=== PATIENT | female | born 1960 | race African-American/Black ===

== ENCOUNTER → 2016-12-04 | Outpatient (CLI) | payer OTHER ==
[~2016-12-04] VITALS: Ht 162.6 cm; Wt 84.0 kg
[~2016-12-04] MED LIST: ALLEGRA180 MG PO; Ascorbic Acid,Ester- PO; Bactrim,Septra DS 80 PO; CELEBREX200 MG PO; Copaxone SC; DITROPAN5 MG PO; DULCOLAX5 MG PO; Ditropan PO; FEOSOL325 MG PO; FLONASE16 G1 BOTH NARES; Flonase BOTH NARES; GILENYA0.5 MG PO; LOVENOX40 MG/0.4 SC; Lioresal PO; NUVIGIL150 MG PO; NUVIGIL250 MG PO; OXYCODONE HCL5 M1 PO; OxyCODONE PO; OxyCONTIN PO; Provigil PO; SENOKOT S,PE1 TABLET PO; SUPER B COMP1 TABLET PO; THERAGRAN1 TABLET PO; TIZANIDINE HCL4 MG PO; TYLENOL EXTRA500 MG PO; Tums PO; Tylenol Regular Stre PO; VITAMIN D1000 INTUN PO; VITAMIN D2000 INTUN PO; Vitamin B Complex PO; ZANAFLEX4 MG PO; ZOLOFT100 MG PO; Zoloft PO; predniSONE PO
== END | disposition home or self-care (01) ==
LOC: AMB 09:29
PROC: 0DJD8ZZ Inspection of Lower Intestinal Tract, Via Natural or Artificial Opening Endoscopic (ICD-10-PCS; principal; 2016-12-04)
DX: Z12.11 Encounter for screening for malignant neoplasm of colon (principal); K64.8 Other hemorrhoids; E78.5 Hyperlipidemia, unspecified; N31.9 Neuromuscular dysfunction of bladder, unspecified
CPT/HCPCS: J2250; J3010

== ENCOUNTER 2017-09-23 16:20 | Observation (INO) | payer OTHER ==
[~2017-09-23] VITALS: Ht 162.6 cm; Wt 81.8 kg
[~2017-09-23 16:20] MED LIST changes: +ALLEGRA ALLERG180 MG PO; -SUPER B COMP1 TABLET PO; +SUPER B COMPLE1 EAC2 PO; -VITAMIN D2000 INTUN PO; +VITAMIN D2000 UNIT PO
[2017-09-23 18:49] LABS: EOSINOPHIL (%) 0.8 % (0-5); EOSINOPHIL COUNT 0.1 K/uL (0-0.3); HEMATOCRIT 34.4 % (36.0-46.0); IMMATURE GRANULOCYTE (%) 0.2 % (0.0-0.7); INSTRUMENT ABS NEUTROPHIL CT 7.5 K/uL; LYMPHOCYTE COUNT 2.4 K/uL (1.0-2.8); MCHC 31.4 G/DL (30.0-36.0); MEAN PLAT.VOLUME 12.3 uM^3 (9.5-12.4); MONOCYTE (%) 6.5 % (3-12); MONOCYTE COUNT 0.7 K/uL (0-0.8); NEUTROPHIL (%) 69.5 % (45-76); NEUTROPHIL COUNT 7.5 K/uL (1.8-6.4); PLATELET COUNT 262 K/uL (156-360); RBC DIS.WIDTH-CV 14.1 % (11.8-14.6); RBC DIS.WIDTH-SD 44.5 % (39-53); WHITE BLOOD COUNT 10.7 K/uL (4.1-10.2)
[2017-09-23 18:58] LABS: CHLORIDE 105 mEq/L (99-109); POTASSIUM 3.8 mEq/L (3.7-5.4); SODIUM 139 mEq/L (136-147)
[2017-09-23 18:59] LABS: GLUCOSE 95 mg/dL (70-99)
[2017-09-23 19:01] LABS: ANION GAP 8 MEQ/L (2-14)
[2017-09-23 19:03] LABS: GFR ESTIMATE (CALCULATED) > 59 mL/min/
[2017-09-23 19:04] LABS: UREA NITROGEN (BUN) 13 mg/dL (9-23)
[2017-09-23] MEDS ORDERED: CRESTOR5 MG PO (19:18)
[2017-09-23 19:29] LABS: ERTH.SED.RATE 115 MM/HR (0-30)
[2017-09-23 19:32] LABS: C-REACTIVE PROTEIN 45.8 MG/L (0-10)
[2017-09-23 21:57] VITALS: BP 109/62
[2017-09-24 04:01] VITALS: BP 102/55
[2017-09-24 06:58] LABS: HEMATOCRIT 31.7 % (36.0-46.0); MCHC 31.2 G/DL (30.0-36.0); MCV 86.4 FL (83-99); MEAN PLAT.VOLUME 12.4 uM^3 (9.5-12.4); PLATELET COUNT 244 K/uL (156-360); RBC DIS.WIDTH-CV 14.3 % (11.8-14.6); RBC DIS.WIDTH-SD 45.2 % (39-53); RED BLOOD COUNT 3.67 M/uL (3.80-5.20)
[2017-09-24 07:15] VITALS: BP 105/59
[2017-09-24 07:23] LABS: ALKALINE PHOSPHATASE 69 IU/L (3-129); ANION GAP 8 MEQ/L (2-14); CHLORIDE 108 MEQ/L (99-109); GFR ESTIMATE (CALCULATED) > 59 mL/min/; GLUCOSE 128 mg/dL (70-99); POTASSIUM 4.4 MEQ/L (3.7-5.4); SAMPLE HEMOLYSIS CHECK 0; SAMPLE ICTERIC CHECK 0; SAMPLE LIPEMIA CHECK 0; SODIUM 143 MEQ/L (136-147); TOTAL BILIRUBIN 0.3 MG/DL (0.0-1.0); UREA NITROGEN (BUN) 12 mg/dL (9-23)
[2017-09-24 11:25] VITALS: BP 116/57
[2017-09-24 11:58] LABS: URIC ACID 4.5 mg/dL (3.1-9.2)
[2017-09-24 16:58] VITALS: BP 117/60
[2017-09-24 19:45] VITALS: BP 124/65
[2017-09-24 23:25] VITALS: BP 119/57
[2017-09-25 07:25] VITALS: BP 121/60
[2017-09-25 15:38] VITALS: BP 117/55
[2017-09-25 23:32] VITALS: BP 122/63
[2017-09-26 07:20] VITALS: BP 99/62
[2017-09-26] MEDS ORDERED: PREDNISONE20 MG PO (10:46)
[2017-09-26] MEDS ORDERED: KEFLEX500 MG PO (10:46)
[2017-09-26] MEDS ORDERED: PROBIOTIC1 EAC1 PO (12:01)
== END 2017-09-26 12:55 | disposition home or self-care (01) ==
LOC: EME 16:20 → 2EAST 20:25 → EDOF 20:25 → 2EAST 20:25 → ENRESERV 20:26 → 2EAST 21:33
PROVIDERS: Emergency Medicine; Physician Assistant
DX: L03.113 Cellulitis of right upper limb (principal); M70.21 Olecranon bursitis, right elbow; G35 Multiple sclerosis; F32.9 Major depressive disorder, single episode, unspecified; D64.9 Anemia, unspecified; Z99.3 Dependence on wheelchair; G89.29 Other chronic pain; J45.909 Unspecified asthma, uncomplicated; E78.5 Hyperlipidemia, unspecified; M19.90 Unspecified osteoarthritis, unspecified site; Z87.81 Personal history of (healed) traumatic fracture; Z87.891 Personal history of nicotine dependence; Z82.49 Family history of ischemic heart disease and other diseases of the circulatory system; Z82.0 Family history of epilepsy and other diseases of the nervous system; Z83.3 Family history of diabetes mellitus; Z82.61 Family history of arthritis; Z81.8 Family history of other mental and behavioral disorders; Z88.0 Allergy status to penicillin; Z88.5 Allergy status to narcotic agent; Z88.6 Allergy status to analgesic agent; Z91.040 Latex allergy status; Z91.018 Allergy to other foods
CPT/HCPCS: 73080; 80048; 80053; 84550; 85025; 85027; 85651; 86140; 93971; 99281; 99285; G0378; J0690; J0696; J1650; J7030; J7512